=== PATIENT | male | born 1975 | race Caucasian/White ===

== ENCOUNTER 2018-03-15 11:48 | Inpatient (IN) | payer OTHER ==
[2018-03-15 11:58] VITALS: BMI 25.4
--- NOTE | 2018-03-15 16:02 | HP ---
COWS - Scale Resting Pulse: 0= [place] 80 or Below Sweatin= Chills/Flushing Restless Observation: 1= Difficult to Sit Still Pupil Size: 0= Normal to Room Light Bone or Joint Aches: 4=Acute Joint/Muscle Pain Runny Nose/ Eye Tearin= Runny Nose/Eyes GI Upset > 30mins: 2= Nausea/Diarrhea Tremor Observation: 2= Slight Tremor Visible Yawning Observation: 1= 1-2x During Session Anxiety or Irritability: 2=Irritable/Anxious Goose Flesh Skin: 0=Smooth Skin COWS Score: 15 CIWA Score - Admission Criteria OASAS Guidelines: Admission for Medically Managed Detox: Requires at least one of the followin. CIWA greater than 12 2. Seizures within the past 24 hours 3. Delirium tremens within the past 24 hours 4. Hallucinations within the past 24 hours 5. Acute intervention needed for co occurring medical disorder 6. Acute intervention needed for co occurring psychiatric disorder 7. Severe withdrawal that cannot be handled at a lower level of care (continued vomiting, continued diarrhea, abnormal vital signs) requiring intravenous medication and/or fluids 8. Admission ROS [facility] Chief Complaint: "I Need to Change My Life." Patient is here for Detox for Opiates (Heroin). Allergies/Adverse Reactions: Allergies Allergy/AdvReac Type Severity Reaction Status Date / Time Fish Containing Products Allergy Severe Verified 03/15/18 14:30 History of Present Illness: Patient is a 43 YO male here for Detox from Heroin (IV). This is Patient's first Detox admission at [facility]. Patient had a Detox admission at [facility] ([place], [place]) in 2018. Review of [facility] I-Stop Provider Registry Reveals No Prescription of Controlled substances for Patient in [facility] for last 12 months. Exam Limitations: No Limitations - Ebola screening Have you traveled outside of the country in the last 21 days: No Have you had contact with anyone from an Ebola affected area: No Have you been sick,other than usual withdrawal symptoms: No Do you have a fever: No - Review of Systems Constitutional: Chills, Diaphoresis, Fever, Loss of Appetite, Malaise, Night Sweats, Changes in sleep, Unintentional Wgt. Loss (Lost Approx. 30 lbs. over last 3-4 months.) EENT: reports: Nose Congestion, Sinus Pressure Respiratory: reports: No Symptoms reported Cardiac: reports: No Symptoms Reported GI: reports: Nausea, Poor Appetite, Indigestion, Abdominal cramping : reports: No Symptoms Reported Musculoskeletal: reports: Back Pain, Other (Bilateral Foot Pain.) Integumentary: reports: No Symptoms Reported Neuro: reports: Tremors Endocrine: reports: No Symptoms Reported Hematology: reports: No Symptoms Reported Psychiatric: reports: Judgement Intact, Mood/Affect Appropiate, Orientated x3, Anxious, Depressed (No Previous Treatment.) Other Systems: Reviewed and Negative Patient History - Patient Medical History Hx Anemia: No Hx Asthma: No Hx Chronic Obstructive Pulmonary Disease (COPD): No Hx Cancer: No Hx Cardiac Disorders: No Hx Congestive Heart Failure: No Hx Hypertension: No Hx Hypercholesterolemia: No Hx Pacemaker: No HX Cerebrovascular Accident: No Hx Seizures: No Hx Dementia: No Hx Diabetes: No Hx Gastrointestinal Disorders: No Hx Liver Disease: No Hx Genitourinary Disorders: No Hx Sexually Transmitted Disorders: No Hx Renal Disease (ESRD): No Hx Thyroid Disease: No Hx Human Immunodeficiency Virus (HIV): No (Last Tested: Approx. 6 Months Ago: NEGATIVE.) Hx Hepatitis C: No (Never Tested.) Hx Depression: Yes (No Previous Treatment.) Hx Suicide Attempt: Yes (Tried to cut wrist in 1990. PATIENT DENIES CURRENT HI / SI.) Hx Bipolar Disorder: No Hx Schizophrenia: No Other Medical History: DENIES. - Patient Surgical History Past Surgical History: Yes Hx Neurologic Surgery: No Hx Cataract Extraction: No Hx Cardiac Surgery: No Hx Lung Surgery: No Hx Breast Surgery: No Hx Breast Biopsy: No Hx Abdominal Surgery: No Hx Appendectomy: No Hx Cholecystectomy: No Hx Genitourinary Surgery: No Hx Orthopedic Surgery: Yes (Fx both ankles sx; Metal Rods Placed (2000-Left), ( 2009-Right).) Other Surgical History: DENIES. Anesthesia Reaction: No - PPD History Previous Implant?: Yes Documented Results: Negative w/o proof Implanted On Prior R Admission?: No PPD to be Administered?: Yes - Reproductive History Patient is a Female of Child Bearing Age (11 -55 yrs old): No (PATIENT IS MALE.) - Smoking Cessation Smoking history: Current every day smoker Have you smoked in the past 12 months: Yes Aproximately how many cigarettes per day: 40 Cigars Per Day: 0 Hx Chewing Tobacco Use: No Initiated information on smoking cessation: Yes 'Breaking Loose' booklet given: 03/15/18 (GIVEN ON UNIT.) - Substance & Tx. History Hx Alcohol Use: No Hx Substance Use: Yes Substance Use Type: Cocaine, Heroin Hx Substance Use Treatment: Yes (1 Previous Detox Admission at [facility]2018.) - Substances Abused Heroin Route: Injection Frequency: Daily Amount used: 20 bags Age of first use: 20 Date of Last Use: 03/15/18 Cocaine Route: Injection Frequency: 1-3 times last 30 days Amount used: $20 Age of first use: 22 Date of Last Use: 03/15/18 Family Disease History - Family Disease History Family History: Denies Admission Physical Exam S - Vital Signs Vital Signs: Vital Signs - 24 hr 03/15/18 11:55 Temperature 97.8 F Pulse Rate 71 Respiratory 18 Rate Blood Pressure 116/69 - Physical General Appearance: Yes: No Apparent Distress, Nourished, Appropriately Dressed , Tremorous, Irritable, Anxious HEENTM: Yes: Hearing grossly Normal, Normocephalic, Normal Voice, EDEL, Pharynx Normal Respiratory: Yes: Chest Non-Tender, Lungs Clear, No Respiratory Distress, No Accessory Muscle Use Neck: Yes: No masses,lesions,Nodules, Supple, Trachea in good position Breast: Yes: Breast Exam Deferred Cardiology: Yes: Regular Rhythm, Regular Rate, S1, S2 Abdominal: Yes: Normal Bowel Sounds, Non Tender, Flat, Soft Genitourinary: Yes: Within Normal Limits Back: Yes: Decreased Range of Motion Musculoskeletal: Yes: Gait Steady, Back pain, Joint Stiffness Extremities: Yes: Normal Capillary Refill, Normal Range of Motion, Tremors Neurological: Yes: Fully Oriented, Alert, Normal Mood/Affect, Normal Response Integumentary: Yes: Normal Color, Dry, Warm, Track Vicente (Noted on Bilateral Forearms, Bilateral Hands, Both Sides of Neck, and on Right Ankle (Near Medial Malleolus). No Swelling, Erythema, or signs of infection noted at any of the affected sites.), Other (Dry Skin on Soles of Bilateral Feet.) Lymphatic: Yes: Within Normal Limits - Diagnostic (1) Opioid dependence with withdrawal Current Visit: Yes Status: Acute (2) Cocaine dependence, uncomplicated Current Visit: Yes Status: Acute (3) Nicotine dependence Current Visit: Yes Status: Chronic Qualifiers: Nicotine product type: cigarettes Substance use status: uncomplicated Qualified Code(s): F17.210 - Nicotine dependence, cigarettes, uncomplicated (4) IVDU (intravenous drug user) Current Visit: Yes Status: Chronic Cleared for Admission [facility] - Detox or Rehab [facility] Level of Care: Medically Managed Detox Regimen/Protocol: Methadone [facility] Breath Alcohol Content Breath Alcohol Content: 0 Urine Drug Screen - Results Drug Screen Negative: No Urine Drug Screen Results: DONNA-Cocaine, OPI-Opiates, FEN-Fentanyl
[2018-03-15] MEDS ORDERED: P-EPHED 60MG/TRIPROLIDI 2.5MG TABLET PO PRN (16:23)
[2018-03-15] MEDS ORDERED: guaiFENesin/D-METHORPHAN HB 10 ML UNIT-DOSE CUPS PO PRN (16:23)
[2018-03-15] MEDS ORDERED: MAGNESIUM HYDROX 2400MG/30ML ORAL SUSPENSION 30 ML CUP PO PRN (16:23)
[2018-03-15] MEDS ORDERED: LOPERAMIDE HCL 2 MG CAPSULE PO PRN (16:23)
[2018-03-15] MEDS ORDERED: MAGNESIUM CITRATE 300 ML BOTTLE PO PRN (16:23)
[2018-03-15] MEDS ORDERED: ACETAMINOPHEN 325 MG TABLET (FP) PO PRN (16:23)
[2018-03-15] MEDS ORDERED: NICOTINE POLACRILEX 4 MG GUM BC PRN (16:23)
[2018-03-15] MEDS ORDERED: IBUPROFEN 400 MG TABLET (FP) PO PRN (16:23)
[2018-03-15] MEDS ORDERED: MAG HYDROX/AL HYDROX/SIMETH 30 ML UNIT-DOSE CUP PO PRN (16:23)
[2018-03-15] MEDS ORDERED: MENTHOL/PHENOL 1 EACH UD MM PRN (16:23)
[2018-03-15] MEDS ORDERED: METHADONE HCL 10 MG TABLET (FOR DETOX USE ONLY) PO ONE ×2 (16:45→23:00)
[2018-03-15] MEDS: diazePAM 5 MG TABLET PO PRN (17:23)
[2018-03-15] MEDS: BACITRACIN 0.9 GM PACKET TP SCH (22:06)
[2018-03-15] MEDS: NAPROXEN 375 MG TABLET (FP) PO SCH (22:06)
[2018-03-15] MEDS: THIAMINE HCL 100 MG TABLET (FP) PO SCH (22:07)
[2018-03-15] MEDS: CYCLOBENZAPRINE HCL 10 MG TABLET (FP) PO SCH (22:07)
[2018-03-15] MEDS: AMMONIUM LACTATE 12% LOTION 225 GM BOTTLE TP SCH (22:08)
[2018-03-16] MEDS: CYCLOBENZAPRINE HCL 10 MG TABLET (FP) PO SCH ×3 (05:10→22:11)
--- NOTE | 2018-03-16 09:12 | PN ---
BHS COWS - Scale Resting Pulse: 0= [place] 80 or Below Sweatin= Chills/Flushing Restless Observation: 1= Difficult to Sit Still Pupil Size: 1= Pupils >than Normal Bone or Joint Aches: 2= Severe Diffuse Aches Runny Nose/ Eye Tearin= Nasal Congestion GI Upset > 30mins: 2= Nausea/Diarrhea Tremor Observation of Outstretched Hands: 1= Tremor [place], Not Seen Yawning Observation: 1= 1-2x During Session Anxiety or Irritability: 1=Feels Anxious/Irritable Goose Flesh Skin: 0=Smooth Skin COWS Score: 11 S Progress Note (SOAP) Subjective: body aches joints pain restlessness tremor Objective: 03/16/18 09:13 Vital Signs Temperature 96.4 F L 03/16/18 09:04 Pulse Rate 61 03/16/18 09:04 Respiratory Rate 17 03/16/18 09:04 Blood Pressure 108/68 03/16/18 09:04 O2 Sat by Pulse Oximetry (%) lab pending Assessment: 03/16/18 09:14 withdrawal sx Plan: continue detox
[2018-03-16] MEDS ORDERED: METHADONE HCL 10 MG TABLET (FOR DETOX USE ONLY) PO ONE (10:00)
[2018-03-16] MEDS: NAPROXEN 375 MG TABLET (FP) PO SCH ×2 (10:07→22:11)
[2018-03-16] MEDS: PRENATAL VITAMINS W/ FOLIC ACID TABLET (FP) PO SCH (10:07)
[2018-03-16] MEDS: BACITRACIN 0.9 GM PACKET TP SCH ×2 (10:07→22:04)
[2018-03-16] MEDS: NICOTINE 21 MG/24 HOURS TOPICAL PATCH TD SCH (10:08)
[2018-03-16] MEDS: diazePAM 5 MG TABLET PO PRN ×3 (10:08→22:11)
[2018-03-16] MEDS: AMMONIUM LACTATE 12% LOTION 225 GM BOTTLE TP SCH ×2 (10:08→22:03)
[2018-03-16 10:51] LABS: HEMATOCRIT 37.7 % (35.4-49); HEMOGLOBIN 12.9 GM/dL (11.7-16.9); MCH 31.3 pg (25.7-33.7); MCHC 34.2 g/dl (32.0-35.9); MEAN CELL VOLUME 91.6 fl (80-96); MEAN PLT VOLUME 8.3 fl (7.5-11.1); PLATELET COUNT 256 K/MM3 (134-434); RBC 4.11 M/mm3 (4.00-5.60); WHITE BLOOD COUNT 6.3 K/mm3 (4.0-10.0)
[2018-03-16 11:04] LABS: ALBUMIN 3.7 g/dl (3.4-5.0); ALK PHOS 159 U/L (45-117); ANION GAP 9 MMOL/L (8-16); BILIRUBIN,TOTAL 0.7 mg/dL (0.2-1); BLOOD UREA NITROGEN 26 mg/dL (7-18); CALCIUM 9.1 mg/dL (8.5-10.1); CHLORIDE 103 mmol/L (98-107); CO2 26 mmol/L (21-32); CREATININE 1.1 mg/dL (0.55-1.3); GLUCOSE,RANDOM 103 mg/dL (74-106); POTASSIUM 4.4 mmol/L (3.5-5.1); SGOT/AST 29 U/L (15-37); SGPT/ALT 80 U/L (13-61); SODIUM 138 mmol/L (136-145); TOT PROT 7.5 g/dl (6.4-8.2)
[2018-03-16 12:20] LABS: SICKLE CELL SCREEN NEGATIVE (NEGATIVE)
[2018-03-16] MEDS: MELATONIN 5 MG TABLETS PO PRN (22:12)
[2018-03-16] MEDS: THIAMINE HCL 100 MG TABLET (FP) PO SCH (22:12)
[2018-03-17] MEDS: diazePAM 5 MG TABLET PO PRN ×4 (05:07→20:58)
[2018-03-17] MEDS: CYCLOBENZAPRINE HCL 10 MG TABLET (FP) PO SCH ×3 (05:07→22:18)
--- NOTE | 2018-03-17 09:24 | PN ---
BHS COWS - Scale Resting Pulse: 0= [place] 80 or Below Sweatin= Chills/Flushing Restless Observation: 0= Sits Still Pupil Size: 0= Normal to Room Light Bone or Joint Aches: 1= Mild Discomfort Runny Nose/ Eye Tearin= Nasal Congestion GI Upset > 30mins: 1= Stomach Cramp Tremor Observation of Outstretched Hands: 1= Tremor [place], Not Seen Yawning Observation: 2= >3x During Session Anxiety or Irritability: 1=Feels Anxious/Irritable Goose Flesh Skin: 0=Smooth Skin COWS Score: 8 BHS Progress Note (SOAP) Subjective: joints pain body aches trouble sleep at night Objective: 03/17/18 09:22 Vital Signs Temperature 96.7 F L 03/17/18 09:06 Pulse Rate 79 03/17/18 09:06 Respiratory Rate 18 03/17/18 09:06 Blood Pressure 95/54 L 03/17/18 09:06 O2 Sat by Pulse Oximetry (%) Laboratory Last Values WBC 6.3 K/mm3 (4.0-10.0) 03/16/18 05:45 RBC 4.11 M/mm3 (4.00-5.60) 03/16/18 05:45 Hgb 12.9 GM/dL (11.7-16.9) 03/16/18 05:45 Hct 37.7 % (35.4-49) 03/16/18 05:45 MCV 91.6 fl (80-96) 03/16/18 05:45 MCH 31.3 pg (25.7-33.7) 03/16/18 05:45 MCHC 34.2 g/dl (32.0-35.9) 03/16/18 05:45 RDW 14.0 % (11.9-15.9) 03/16/18 05:45 Plt Count 256 K/MM3 (134-434) 03/16/18 05:45 MPV 8.3 fl (7.5-11.1) 03/16/18 05:45 Sickle Cell Screen Negative (NEGATIVE) 03/16/18 05:45 Sodium 138 mmol/L (136-145) 03/16/18 05:45 Potassium 4.4 mmol/L (3.5-5.1) 03/16/18 05:45 Chloride 103 mmol/L (98-107) 03/16/18 05:45 Carbon Dioxide 26 mmol/L (21-32) 03/16/18 05:45 Anion Gap 9 MMOL/L (8-16) 03/16/18 05:45 BUN 26 mg/dL (7-18) H 03/16/18 05:45 Creatinine 1.1 mg/dL (0.55-1.3) 03/16/18 05:45 Creat Clearance w eGFR > 60 (>60) 03/16/18 05:45 Random Glucose 103 mg/dL (74-106) 03/16/18 05:45 Calcium 9.1 mg/dL (8.5-10.1) 03/16/18 05:45 Total Bilirubin 0.7 mg/dL (0.2-1) 03/16/18 05:45 AST 29 U/L (15-37) 03/16/18 05:45 ALT 80 U/L (13-61) H 03/16/18 05:45 Alkaline Phosphatase 159 U/L (45-117) H 03/16/18 05:45 Total Protein 7.5 g/dl (6.4-8.2) 03/16/18 05:45 Albumin 3.7 g/dl (3.4-5.0) 03/16/18 05:45 RPR Titer Nonreactive (NONREACTIVE) 03/16/18 05:45 Hep C Ab Diagnostic <0.1 s/co ratio (0.0-0.9) 03/16/18 05:45 HIV 1&2 Antibody Screen Negative 03/16/18 05:45 HIV P24 Antigen Negative 03/16/18 05:45 lab noted increase oral fluid Assessment: 03/17/18 09:23 withdrawal sx 03/17/18 09:24 fluid volume deficit Plan: continue detox increase oral fluid >3L daily
[2018-03-17] MEDS ORDERED: METHADONE HCL 5 MG TABLET (FOR DETOX USE ONLY) PO ONE (10:00)
[2018-03-17] MEDS: BACITRACIN 0.9 GM PACKET TP SCH ×2 (10:39→22:18)
[2018-03-17] MEDS: PRENATAL VITAMINS W/ FOLIC ACID TABLET (FP) PO SCH (10:39)
[2018-03-17] MEDS: NAPROXEN 375 MG TABLET (FP) PO SCH ×2 (10:39→22:18)
[2018-03-17] MEDS: AMMONIUM LACTATE 12% LOTION 225 GM BOTTLE TP SCH ×2 (10:41→22:19)
[2018-03-17] MEDS: NICOTINE 21 MG/24 HOURS TOPICAL PATCH TD SCH (10:41)
[2018-03-17] MEDS: THIAMINE HCL 100 MG TABLET (FP) PO SCH (22:19)
[2018-03-17] MEDS: MELATONIN 5 MG TABLETS PO PRN (22:19)
[2018-03-18] MEDS: CYCLOBENZAPRINE HCL 10 MG TABLET (FP) PO SCH ×2 (05:34→14:56)
[2018-03-18] MEDS: diazePAM 5 MG TABLET PO PRN ×3 (05:34→14:59)
--- NOTE | 2018-03-18 08:57 | PN ---
BHS Progress Note (SOAP) Subjective: body ache muscle cramping tremor reported feeling better today less tremor Objective: 03/18/18 08:55 Vital Signs Temperature 97.1 F L 03/18/18 06:29 Pulse Rate 64 03/18/18 06:29 Respiratory Rate 18 03/18/18 06:30 Blood Pressure 100/56 L 03/18/18 06:29 O2 Sat by Pulse Oximetry (%) Laboratory Last Values WBC 6.3 K/mm3 (4.0-10.0) 03/16/18 05:45 RBC 4.11 M/mm3 (4.00-5.60) 03/16/18 05:45 Hgb 12.9 GM/dL (11.7-16.9) 03/16/18 05:45 Hct 37.7 % (35.4-49) 03/16/18 05:45 MCV 91.6 fl (80-96) 03/16/18 05:45 MCH 31.3 pg (25.7-33.7) 03/16/18 05:45 MCHC 34.2 g/dl (32.0-35.9) 03/16/18 05:45 RDW 14.0 % (11.9-15.9) 03/16/18 05:45 Plt Count 256 K/MM3 (134-434) 03/16/18 05:45 MPV 8.3 fl (7.5-11.1) 03/16/18 05:45 Sickle Cell Screen Negative (NEGATIVE) 03/16/18 05:45 Sodium 138 mmol/L (136-145) 03/16/18 05:45 Potassium 4.4 mmol/L (3.5-5.1) 03/16/18 05:45 Chloride 103 mmol/L (98-107) 03/16/18 05:45 Carbon Dioxide 26 mmol/L (21-32) 03/16/18 05:45 Anion Gap 9 MMOL/L (8-16) 03/16/18 05:45 BUN 26 mg/dL (7-18) H 03/16/18 05:45 Creatinine 1.1 mg/dL (0.55-1.3) 03/16/18 05:45 Creat Clearance w eGFR > 60 (>60) 03/16/18 05:45 Random Glucose 103 mg/dL (74-106) 03/16/18 05:45 Calcium 9.1 mg/dL (8.5-10.1) 03/16/18 05:45 Total Bilirubin 0.7 mg/dL (0.2-1) 03/16/18 05:45 AST 29 U/L (15-37) 03/16/18 05:45 ALT 80 U/L (13-61) H 03/16/18 05:45 Alkaline Phosphatase 159 U/L (45-117) H 03/16/18 05:45 Total Protein 7.5 g/dl (6.4-8.2) 03/16/18 05:45 Albumin 3.7 g/dl (3.4-5.0) 03/16/18 05:45 RPR Titer Nonreactive (NONREACTIVE) 03/16/18 05:45 Hep C Ab Diagnostic <0.1 s/co ratio (0.0-0.9) 03/16/18 05:45 HIV 1&2 Antibody Screen Negative 03/16/18 05:45 HIV P24 Antigen Negative 03/16/18 05:45 lab noted Assessment: 03/18/18 08:56 withdrawal sx Plan: continue detox
[2018-03-18] MEDS ORDERED: METHADONE HCL 5 MG TABLET (FOR DETOX USE ONLY) PO ONE (10:00)
[2018-03-18] MEDS: NAPROXEN 375 MG TABLET (FP) PO SCH (10:41)
[2018-03-18] MEDS: PRENATAL VITAMINS W/ FOLIC ACID TABLET (FP) PO SCH (10:41)
[2018-03-18] MEDS: NICOTINE 21 MG/24 HOURS TOPICAL PATCH TD SCH (10:41)
[2018-03-18] MEDS: BACITRACIN 0.9 GM PACKET TP SCH (10:41)
[2018-03-18] MEDS: AMMONIUM LACTATE 12% LOTION 225 GM BOTTLE TP SCH (10:46)
[2018-03-18 13:26] VITALS: BP 112/78; PULSE 90; TEMP 96.8
--- NOTE | 2018-03-18 15:55 | DS ---
[facility] Detox Discharge Summary Admission Date: 03/15/18 Discharge Date: 03/18/18 - History Present History: Opioid Dependence Additional Comments: 43 years old male admitted on 03/15/18 for opiate withdrawal stabilization insists to leave the detox unit "I want to smoke cigarette" discuss craving coping skills patient preferred to leave the detox unit discuss negative consequences of opiate misuse encourage to brick picker narcan kit from the pharmacy Pertinent Past History: offer alternative therapeutic management for nicotine replacement offer supportive measurement - Physical Exam Results Vital Signs: Vital Signs Temperature 96.8 F L 03/18/18 13:24 Pulse Rate 90 03/18/18 13:24 Respiratory Rate 20 03/18/18 13:24 Blood Pressure 112/78 03/18/18 13:24 O2 Sat by Pulse Oximetry (%) Pertinent Admission Physical Exam Findings: opiate withdrawal sx Laboratory Last Values WBC 6.3 K/mm3 (4.0-10.0) 03/16/18 05:45 RBC 4.11 M/mm3 (4.00-5.60) 03/16/18 05:45 Hgb 12.9 GM/dL (11.7-16.9) 03/16/18 05:45 Hct 37.7 % (35.4-49) 03/16/18 05:45 MCV 91.6 fl (80-96) 03/16/18 05:45 MCH 31.3 pg (25.7-33.7) 03/16/18 05:45 MCHC 34.2 g/dl (32.0-35.9) 03/16/18 05:45 RDW 14.0 % (11.9-15.9) 03/16/18 05:45 Plt Count 256 K/MM3 (134-434) 03/16/18 05:45 MPV 8.3 fl (7.5-11.1) 03/16/18 05:45 Sickle Cell Screen Negative (NEGATIVE) 03/16/18 05:45 Sodium 138 mmol/L (136-145) 03/16/18 05:45 Potassium 4.4 mmol/L (3.5-5.1) 03/16/18 05:45 Chloride 103 mmol/L (98-107) 03/16/18 05:45 Carbon Dioxide 26 mmol/L (21-32) 03/16/18 05:45 Anion Gap 9 MMOL/L (8-16) 03/16/18 05:45 BUN 26 mg/dL (7-18) H 03/16/18 05:45 Creatinine 1.1 mg/dL (0.55-1.3) 03/16/18 05:45 Creat Clearance w eGFR > 60 (>60) 03/16/18 05:45 Random Glucose 103 mg/dL (74-106) 03/16/18 05:45 Calcium 9.1 mg/dL (8.5-10.1) 03/16/18 05:45 Total Bilirubin 0.7 mg/dL (0.2-1) 03/16/18 05:45 AST 29 U/L (15-37) 03/16/18 05:45 ALT 80 U/L (13-61) H 03/16/18 05:45 Alkaline Phosphatase 159 U/L (45-117) H 03/16/18 05:45 Total Protein 7.5 g/dl (6.4-8.2) 03/16/18 05:45 Albumin 3.7 g/dl (3.4-5.0) 03/16/18 05:45 RPR Titer Nonreactive (NONREACTIVE) 03/16/18 05:45 Hep C Ab Diagnostic <0.1 s/co ratio (0.0-0.9) 03/16/18 05:45 HIV 1&2 Antibody Screen Negative 03/16/18 05:45 HIV P24 Antigen Negative 03/16/18 05:45 lab noted - Treatment Hospital Course: Detox Protocol Followed, Responded well Patient has Accepted a Rehab Referral to: [facility] - Medication Discharge Medications: Ambulatory Orders Naloxone HCl [Narcan] 4 mg NS ASDIR PRN #1 spray 03/18/18 - Diagnosis (1) Opioid dependence with withdrawal Current Visit: Yes Status: Acute (2) Nicotine dependence Current Visit: Yes Status: Acute Qualifiers: Nicotine product type: cigarettes Substance use status: in withdrawal Qualified Code(s): F17.213 - Nicotine dependence, cigarettes, with withdrawal - AMA Did Patient Leave Against Medical Advice: Yes
[2018-03-19] MEDS ORDERED: METHADONE HCL 10 MG TABLET (FOR DETOX USE ONLY) PO ONE (10:00)
[2018-03-20] MEDS ORDERED: METHADONE HCL 5 MG TABLET (FOR DETOX USE ONLY) PO ONE (06:00)
== END 2018-03-18 15:58 | disposition left against medical advice (07) | DRG 770 ==
LOC: YASAS 11:48 → Y3N 15:27
PROVIDERS: ADMIT Neuromusculoskeletal Medicine & OMM; ATTEND Neuromusculoskeletal Medicine & OMM
PROC: HZ2ZZZZ Detoxification Services for Substance Abuse Treatment (ICD-10-PCS; principal; 2018-03-15)
DX: F11.23 Opioid dependence with withdrawal (principal); F14.20 Cocaine dependence, uncomplicated; F17.210 Nicotine dependence, cigarettes, uncomplicated; E86.9 Volume depletion, unspecified; Z91.5 Personal history of self-harm
CPT/HCPCS: 36415; 80053; 85027; 85660; 86593; 86803; 87389

== ENCOUNTER 2018-10-08 13:04 | Inpatient (IN) | payer OTHER ==
[2018-10-08 15:36] VITALS: BMI 27.1
--- NOTE | 2018-10-08 17:09 | HP ---
COWS - Scale Resting Pulse: 0= [place] 80 or Below Sweatin= Chills/Flushing Restless Observation: 0= Sits Still Pupil Size: 1= Pupils >than Normal Bone or Joint Aches: 2= Severe Diffuse Aches Runny Nose/ Eye Tearin= Runny Nose/Eyes GI Upset > 30mins: 3= Vomiting/Diarrhea Tremor Observation: 2= Slight Tremor Visible Yawning Observation: 1= 1-2x During Session Anxiety or Irritability: 4=Extreme Anxiety Goose Flesh Skin: 0=Smooth Skin COWS Score: 16 CIWA Score - Admission Criteria OASAS Guidelines: Admission for Medically Managed Detox: Requires at least one of the followin. CIWA greater than 12 2. Seizures within the past 24 hours 3. Delirium tremens within the past 24 hours 4. Hallucinations within the past 24 hours 5. Acute intervention needed for co occurring medical disorder 6. Acute intervention needed for co occurring psychiatric disorder 7. Severe withdrawal that cannot be handled at a lower level of care (continued vomiting, continued diarrhea, abnormal vital signs) requiring intravenous medication and/or fluids 8. Admission ROS [facility] Chief Complaint: Heroin withdrawal symptoms Allergies/Adverse Reactions: Allergies Allergy/AdvReac Type Severity Reaction Status Date / Time Fish Containing Products Allergy Severe Verified 10/08/18 15:28 No Known Drug Allergies Allergy Verified 10/08/18 17:41 History of Present Illness: 43 years old male with 23 years of heroin dependence i8s seeking admission to detox. Patient has been to multiple detox facilities and reports 5 years of sobriety. He has history of Herpes and depression. He denies suicide attempt and suicidal ideation at this time Exam Limitations: No Limitations - Ebola screening Have you traveled outside of the country in the last 21 days: No Have you had contact with anyone from an Ebola affected area: No Have you been sick,other than usual withdrawal symptoms: No Do you have a fever: No - Review of Systems Constitutional: Chills, Loss of Appetite, Night Sweats, Changes in sleep, Unintentional Wgt. Loss (reports 20 pounds weight loss) Respiratory: reports: No Symptoms reported Cardiac: reports: No Symptoms Reported GI: reports: Nausea, Poor Appetite, Poor Fluid Intake, Abdominal cramping : reports: No Symptoms Reported Musculoskeletal: reports: Back Pain, Joint Pain, Muscle Pain Integumentary: reports: Dryness, Flushing Neuro: reports: Tremors Endocrine: reports: No Symptoms Reported Hematology: reports: No Symptoms Reported Psychiatric: reports: Anxious, Depressed Other Systems: Reviewed and Negative Patient History - Patient Medical History Hx Anemia: No Hx Asthma: No Hx Chronic Obstructive Pulmonary Disease (COPD): No Hx Cancer: No Hx Cardiac Disorders: No Hx Congestive Heart Failure: No Hx Hypertension: No Hx Hypercholesterolemia: No Hx Pacemaker: No HX Cerebrovascular Accident: No Hx Seizures: No Hx Dementia: No Hx Diabetes: No Hx Gastrointestinal Disorders: No Hx Liver Disease: No Hx Genitourinary Disorders: No Hx Sexually Transmitted Disorders: Yes (Herpes -No outbreak for 3 years) Hx Renal Disease (ESRD): No Hx Thyroid Disease: No Hx Human Immunodeficiency Virus (HIV): No ( NEGATIVE 2018) Hx Hepatitis C: No (Never Tested.) Hx Depression: Yes (Not on medication) Hx Suicide Attempt: Yes (Tried to cut wrist in 1990. PATIENT DENIES CURRENT HI / SI.) Hx Bipolar Disorder: No Hx Schizophrenia: No - Patient Surgical History Past Surgical History: Yes Hx Neurologic Surgery: No Hx Cataract Extraction: No Hx Cardiac Surgery: No Hx Lung Surgery: No Hx Breast Surgery: No Hx Breast Biopsy: No Hx Abdominal Surgery: No Hx Appendectomy: No Hx Cholecystectomy: No Hx Genitourinary Surgery: No Hx Orthopedic Surgery: Yes (Fx both ankles sx; Metal Rods Placed (2000-Left), ( 2009-Right).) Other Surgical History: DENIES. Anesthesia Reaction: No - PPD History Previous Implant?: Yes Documented Results: Negative w/proof Date: 03/17/18 PPD to be Administered?: No - Reproductive History Patient is a Female of Child Bearing Age (11 -55 yrs old): No (male) - Smoking Cessation Smoking history: Current every day smoker Have you smoked in the past 12 months: Yes Aproximately how many cigarettes per day: 40 Cigars Per Day: 0 Hx Chewing Tobacco Use: No Initiated information on smoking cessation: Yes 'Breaking Loose' booklet given: 10/08/18 - Substance & Tx. History Hx Alcohol Use: No Hx Substance Use: Yes Substance Use Type: Cocaine, Heroin, Opiates Hx Substance Use Treatment: Yes ([facility]) - Substances abused Heroin Substance route: Injection Frequency: Daily Amount used: 2 bundles Age of first use: 20 Date of last use: 10/08/18 Cocaine Substance route: Injection Frequency: Daily Amount used: 3 grams Age of first use: 18 Date of last use: 10/07/18 Family Disease History - Family Disease History Family History: Denies Admission Physical Exam [facility] - Vital Signs Vital Signs: Vital Signs - 24 hr 10/08/18 15:28 Temperature 98.0 F Pulse Rate 74 Respiratory 18 Rate Blood Pressure 126/74 - Physical General Appearance: Yes: Moderate Distress, Tremorous, Sweating, Anxious HEENTM: Yes: Within Normal Limits Respiratory: Yes: Lungs Clear, Normal Breath Sounds, No Respiratory Distress Neck: Yes: Supple Breast: Yes: Breast Exam Deferred Cardiology: Yes: Regular Rhythm, Regular Rate Abdominal: Yes: Normal Bowel Sounds Genitourinary: Yes: Within Normal Limits Back: Yes: Normal Inspection Musculoskeletal: Yes: Back pain, Muscle Pain Extremities: Yes: Tremors Neurological: Yes: Normal Mood/Affect Integumentary: Yes: Warm Lymphatic: Yes: Within Normal Limits Cleared for Admission [facility] - Detox or Rehab [facility] Level of Care: Medically Managed Detox Regimen/Protocol: Methadone Inpatient Rehab Admission - Rehab Decision to Admit Inpatient rehab admission?: No
[2018-10-08] MEDS ORDERED: ACETAMINOPHEN 325 MG TABLET (FP) PO PRN ×2 (17:27)
[2018-10-08] MEDS ORDERED: MAGNESIUM HYDROX 2400MG/30ML ORAL SUSPENSION 30 ML CUP PO PRN (17:27)
[2018-10-08] MEDS ORDERED: MAGNESIUM CITRATE 300 ML BOTTLE PO PRN (17:27)
[2018-10-08] MEDS ORDERED: MENTHOL/PHENOL 1 EACH UD MM PRN (17:27)
[2018-10-08] MEDS ORDERED: MAG HYDROX/AL HYDROX/SIMETH 30 ML UNIT-DOSE CUP PO PRN (17:27)
[2018-10-08] MEDS ORDERED: cloNIDine HCL 0.1 MG TABLET PO PRN (17:27)
[2018-10-08] MEDS ORDERED: BISMUTH SUBSALICYLATE 524 MG/30 ML UD PO PRN (17:27)
[2018-10-08] MEDS ORDERED: IBUPROFEN 400 MG TABLET (FP) PO PRN (17:27)
[2018-10-08] MEDS ORDERED: NICOTINE POLACRILEX 2 MG GUM BUC PRN (17:27)
[2018-10-08] MEDS ORDERED: METHADONE HCL 10 MG TABLET (FOR DETOX USE ONLY) PO ONE (18:00)
[2018-10-08] MEDS: hydrOXYzine PAMOATE 25 MG CAPSULE (FP) PO PRN (18:22)
[2018-10-08] MEDS: THIAMINE HCL 100 MG TABLET (FP) PO SCH (22:19)
[2018-10-08] MEDS: MELATONIN 5 MG TABLETS PO PRN (22:20)
[2018-10-09] MEDS ORDERED: METHADONE HCL 5 MG TABLET (FOR DETOX USE ONLY) ONE (09:34)
[2018-10-09] MEDS ORDERED: METHADONE HCL 10 MG TABLET (FOR DETOX USE ONLY) ONE (09:34)
[2018-10-09] MEDS ORDERED: METHADONE (DETOX) 20 MG, METHADONE (DETOX) 5 MG PO ONE (10:00)
[2018-10-09] MEDS: PRENATAL VITAMINS W/ FOLIC ACID TABLET (FP) PO SCH (10:04)
[2018-10-09] MEDS: METHOCARBAMOL 500 MG TABLET PO PRN (10:04)
[2018-10-09] MEDS: NICOTINE 21 MG/24 HOURS TOPICAL PATCH TD SCH (10:06)
--- NOTE | 2018-10-09 10:41 | CONSULT ---
[facility] Psychiatric Consult - Data Date of interview: 10/09/18 Admission source: [facility] Identifying data: Readmission to [facility] for this 43 y/o male self- referred for detoxification (heroin, cocaine). Interviewed at [address] [place] [address]. Patient is single, no dependents, domiciled, unemployed and deprived of income. Substance Abuse History: Confirmed by patient. Details in current [facility] report as follows : Smoking history: Current every day smoker. Have you smoked in the past 12 months: Yes. Aproximately how many cigarettes per day: 40. Cigars Per Day: 0. Hx Chewing Tobacco Use: No. Initiated information on smoking cessation : Yes. 'Breaking Loose' booklet given: 10/08/18. - Substance & Tx. History. Hx Alcohol Use: No. Hx Substance Use: Yes. Substance Use Type: Cocaine, Heroin , Opiates. Hx Substance Use Treatment: Yes ([facility] - Substances abused. Heroin. Substance route: Injection. Frequency: Daily. Amount used : 2 bundles. Age of first use: 20. Date of last use: 10/08/18. Cocaine. Substance route: Injection. Frequency: Daily. Amount used: 3 grams. Age of first use: 18. Date of last use: 10/07/18 Medical History: Medical profile is remarkable for herpes genitalis and history of orthosurgery for fracture of both ankles in 1990 ([address] in [address]). Psychiatric History: Patient denies history of psychiatric hospitalizations or contact with psychiatric OPD care providers. Mr Walter does admit, however, to a suicide attempt via wrist-cutting at age 17 (was evaluated by a psychiatrist, reportedly diagnosed at the time with MDD but patient did not folllow-up with psychiatric care). Noted self-report of intellectual limitations (special education). Physical/Sexual Abuse/Trauma History: Patient denies history of abuse. Additional Comment: No toxicology available for review. Mental Status Exam - Mental Status Exam Alert and Oriented to: Time, Place, Person Cognitive Function: Grossly Intact Patient Appearance: Unkempt, Disheveled Mood: Nervous, Withdrawn Affect: Mood Congruent, Constricted Patient Behavior: Fatigued, Cooperative Speech Pattern: Clear Voice Loudness: Normal Thought Process: Intact, Goal Oriented Thought Disorder: Not Present Hallucinations: Denies Suicidal Ideation: Denies Homicidal Ideation: Denies Insight/Judgement: Poor Sleep: Poorly, Difficulty falling asleep Appetite: Good Muscle strength/Tone: Normal Gait/Station: Normal Psychiatric Findings - Problem List ([place] 1, 2,3) (1) Opioid dependence with withdrawal Current Visit: Yes Status: Acute (2) Cocaine dependence, uncomplicated Current Visit: Yes Status: Chronic (3) Nicotine dependence Current Visit: Yes Status: Chronic Qualifiers: Nicotine product type: cigarettes Substance use status: in withdrawal Qualified Code(s): F17.213 - Nicotine dependence, cigarettes, with withdrawal (4) Insomnia Current Visit: Yes Status: Chronic (5) Substance induced mood disorder Current Visit: Yes Status: Suspected - Initial Treatment Plan Initial Treatment Plan: Psychoeducation. Sleep hygiene. Detoxification. Support. NA meetings. Counseling for relapse prevention. Groups. Rehabilitation recommended. Seroquel 50 mg po hs. Ordered at patient's request to address insomnia. Side effects/benefits and indications are discussed with the patient. Mr Walter gave verbal consent to MD. Elizondo.
[2018-10-09 11:05] LABS: HEMATOCRIT 36.2 % (35.4-49); HEMOGLOBIN 12.2 GM/dL (11.7-16.9); MCH 31.3 pg (25.7-33.7); MCHC 33.8 g/dl (32.0-35.9); MEAN CELL VOLUME 92.6 fl (80-96); MEAN PLT VOLUME 7.5 fl (7.5-11.1); RBC 3.91 M/mm3 (4.00-5.60); WHITE BLOOD COUNT 3.7 K/mm3 (4.0-10.0)
[2018-10-09 11:13] LABS: ALBUMIN 2.9 g/dl (3.4-5.0); BILIRUBIN,TOTAL 0.4 mg/dL (0.2-1); BLOOD UREA NITROGEN 11.5 mg/dL (7-18); CREATININE 0.7 mg/dL (0.55-1.3); POTASSIUM 4.2 mmol/L (3.5-5.1); TOT PROT 6.6 g/dl (6.4-8.2)
[2018-10-09 11:27] LABS: PLATELET COUNT 231 K/MM3 (134-434)
--- NOTE | 2018-10-09 15:40 | PN ---
[facility] COWS - Scale Resting Pulse: 0= [place] 80 or Below Sweatin= No chills or Flushing Restless Observation: 1= Difficult to Sit Still Pupil Size: 0= Normal to Room Light Bone or Joint Aches: 2= Severe Diffuse Aches Runny Nose/ Eye Tearin= None GI Upset > 30mins: 1= Stomach Cramp Tremor Observation of Outstretched Hands: 0= None Yawning Observation: 1= 1-2x During Session Anxiety or Irritability: 2=Irritable/Anxious Goose Flesh Skin: 3=Piloerection COWS Score: 10 BHS Progress Note (SOAP) Subjective: Anxious, Fatigue, Interrupted Sleep, Body Aches, Stomach Cramping. Objective: PATIENT A & O X 3, OBSERVED AMBULATING ON UNIT UNASSISTED. IN NO ACUTE DISTRESS. 10/09/18 15:38 Vital Signs Temperature 97.5 F L 10/09/18 13:08 Pulse Rate 59 L 10/09/18 13:08 Respiratory Rate 18 10/09/18 13:08 Blood Pressure 94/58 L 10/09/18 13:08 O2 Sat by Pulse Oximetry (%) Laboratory Tests 10/09/18 10/09/18 10/09/18 08:00 08:00 08:00 WBC 3.7 L RBC 3.91 L Hgb 12.2 Hct 36.2 MCV 92.6 MCH 31.3 MCHC 33.8 RDW 14.0 Plt Count 231 MPV 7.5 Sodium 142 Potassium 4.2 Chloride 107 Carbon Dioxide 29 Anion Gap 6 L BUN 11.5 Creatinine 0.7 Est GFR (CKD-EPI)AfAm 135.86 Est GFR (CKD-EPI)NonAf 117.22 Random Glucose 97 Calcium 9.0 Total Bilirubin 0.4 AST 59 H ALT 115 H Alkaline Phosphatase 205 H Total Protein 6.6 Albumin 2.9 L RPR Titer Nonreactive LABS NOTED. Assessment: 10/09/18 15:39 WITHDRAWAL SYMPTOMS. LEUKOPENIA. ELEVATED LIVER ENZYMES VALUES. 10/09/18 15:39 Plan: CONTINUE DETOX. INCREASE DAILY PO WATER INTAKE. HFP ORDERED FOR TOMORROW AM FOR ELEVATED LIVER ENZYME VALUES NOTED ON DETOX ADMISSION LABORATORY ASSESSMENT.
[2018-10-09] MEDS: THIAMINE HCL 100 MG TABLET (FP) PO SCH (22:02)
[2018-10-09] MEDS: MELATONIN 5 MG TABLETS PO PRN (22:02)
[2018-10-09] MEDS: hydrOXYzine PAMOATE 25 MG CAPSULE (FP) PO PRN (22:02)
[2018-10-10 09:40] LABS: ALBUMIN 3.1 g/dl (3.4-5.0); BILIRUBIN,DIRECT 0.1 mg/dL (0.0-0.2); BILIRUBIN,TOTAL 0.4 mg/dL (0.2-1)
[2018-10-10] MEDS ORDERED: METHADONE HCL 10 MG TABLET (FOR DETOX USE ONLY) PO ONE (10:00)
[2018-10-10] MEDS: NICOTINE 21 MG/24 HOURS TOPICAL PATCH TD SCH (10:08)
[2018-10-10] MEDS: PRENATAL VITAMINS W/ FOLIC ACID TABLET (FP) PO SCH (10:08)
--- NOTE | 2018-10-10 10:12 | PN ---
S Progress Note Note: Told by nursing staff that patient is requesting medication for insomnia. He was seen yesterday by Dr Choi who recommended Seroquel 50 mg/hs. Will order Seroquel 50 mg/hs for patient
--- NOTE | 2018-10-10 12:58 | PN ---
BHS COWS - Scale Resting Pulse: 0= [place] 80 or Below Sweatin= Chills/Flushing Restless Observation: 0= Sits Still Pupil Size: 1= Pupils >than Normal Bone or Joint Aches: 1= Mild Discomfort Runny Nose/ Eye Tearin= Nasal Congestion GI Upset > 30mins: 1= Stomach Cramp Tremor Observation of Outstretched Hands: 1= Tremor [place], Not Seen Yawning Observation: 1= 1-2x During Session Anxiety or Irritability: 1=Feels Anxious/Irritable Goose Flesh Skin: 0=Smooth Skin COWS Score: 8 BHS Progress Note (SOAP) Subjective: 43 years old male admitted on 10/08/18 for acute opiate withdrawal sx management doing welll with methadone detox regimen trouble sleep at night seroquel 50 mg po hs reassurance given that the patient will receive seroquel 50 mg po before bed time Objective: 10/10/18 13:01 Vital Signs Temperature 98 F 10/10/18 09:17 Pulse Rate 66 10/10/18 09:17 Respiratory Rate 20 10/10/18 09:17 Blood Pressure 98/62 10/10/18 09:17 O2 Sat by Pulse Oximetry (%) Laboratory Last Values WBC 3.7 K/mm3 (4.0-10.0) L 10/09/18 08:00 RBC 3.91 M/mm3 (4.00-5.60) L 10/09/18 08:00 Hgb 12.2 GM/dL (11.7-16.9) 10/09/18 08:00 Hct 36.2 % (35.4-49) 10/09/18 08:00 MCV 92.6 fl (80-96) 10/09/18 08:00 MCH 31.3 pg (25.7-33.7) 10/09/18 08:00 MCHC 33.8 g/dl (32.0-35.9) 10/09/18 08:00 RDW 14.0 % (11.9-15.9) 10/09/18 08:00 Plt Count 231 K/MM3 (134-434) 10/09/18 08:00 MPV 7.5 fl (7.5-11.1) 10/09/18 08:00 Sodium 142 mmol/L (136-145) 10/09/18 08:00 Potassium 4.2 mmol/L (3.5-5.1) 10/09/18 08:00 Chloride 107 mmol/L (98-107) 10/09/18 08:00 Carbon Dioxide 29 mmol/L (21-32) 10/09/18 08:00 Anion Gap 6 MMOL/L (8-16) L 10/09/18 08:00 BUN 11.5 mg/dL (7-18) 10/09/18 08:00 Creatinine 0.7 mg/dL (0.55-1.3) 10/09/18 08:00 Est GFR (CKD-EPI)AfAm 135.86 10/09/18 08:00 Est GFR (CKD-EPI)NonAf 117.22 10/09/18 08:00 Random Glucose 97 mg/dL (74-106) 10/09/18 08:00 Calcium 9.0 mg/dL (8.5-10.1) 10/09/18 08:00 Total Bilirubin 0.4 mg/dL (0.2-1) 10/10/18 07:45 Direct Bilirubin 0.1 mg/dL (0.0-0.2) 10/10/18 07:45 AST 43 U/L (15-37) H 10/10/18 07:45 ALT 105 U/L (13-61) H 10/10/18 07:45 Alkaline Phosphatase 187 U/L (45-117) H 10/10/18 07:45 Total Protein 7.0 g/dl (6.4-8.2) 10/10/18 07:45 Albumin 3.1 g/dl (3.4-5.0) L 10/10/18 07:45 RPR Titer Nonreactive (NONREACTIVE) 10/09/18 08:00 lab noted Assessment: 10/10/18 13:01 opiate withdrawal sx discuss medication assited treatment progrm Plan: continue methadone detox regimen seroquel 50 mg po hs
[2018-10-10] MEDS ORDERED: QUEtiapine FUMARATE 50 MG TABLET PO SCH (22:00)
[2018-10-10] MEDS: MELATONIN 5 MG TABLETS PO PRN (22:05)
[2018-10-10] MEDS: THIAMINE HCL 100 MG TABLET (FP) PO SCH (22:05)
[2018-10-11 09:27] VITALS: BP 100/54; PULSE 60; TEMP 97.6
[2018-10-11] MEDS ORDERED: METHADONE HCL 10 MG TABLET (FOR DETOX USE ONLY) ONE (09:53)
[2018-10-11] MEDS ORDERED: METHADONE HCL 5 MG TABLET (FOR DETOX USE ONLY) ONE (09:54)
[2018-10-11] MEDS ORDERED: METHADONE (DETOX) 10 MG, METHADONE (DETOX) 5 MG PO ONE (10:00)
[2018-10-11] MEDS: NICOTINE 21 MG/24 HOURS TOPICAL PATCH TD SCH (10:07)
[2018-10-11] MEDS: hydrOXYzine PAMOATE 25 MG CAPSULE (FP) PO PRN (10:07)
[2018-10-11] MEDS: METHOCARBAMOL 500 MG TABLET PO PRN (10:07)
[2018-10-11] MEDS: PRENATAL VITAMINS W/ FOLIC ACID TABLET (FP) PO SCH (10:07)
--- NOTE | 2018-10-11 13:02 | EKG ---
Test Reason : Blood Pressure : / mmHG Vent. Rate : 054 BPM Atrial Rate : 054 BPM P-R Int : 218 ms QRS Dur : 094 ms QT Int : 422 ms P-R-T Axes : -17 052 025 degrees QTc Int : 400 ms SINUS BRADYCARDIA WITH SINUS ARRHYTHMIA WITH 1ST DEGREE A-V BLOCK OTHERWISE NORMAL ECG NO PREVIOUS ECGS AVAILABLE Confirmed by TROY PECK MD ([id number]) on 10/11/2018 1:02:13 PM Referred By: SERGIO Confirmed By:TROY PECK MD
--- NOTE | 2018-10-11 14:02 | DS ---
[facility] Detox Discharge Summary Admission Date: 10/08/18 Discharge Date: 10/11/18 - History Present History: Cocaine Dependence, Opioid Dependence Pertinent Past History: Pt was admitted on 10/08. Was on heroin detox protocol. Pt stated this morning that he wanted to leave- no reason given. PRN meds given, today's dose of detox methadone given. Pt not on home meds. Pt states that he does not need any meds. f/u PCP. - Physical Exam Results Vital Signs: Vital Signs Temperature 97.6 F 10/11/18 09:26 Pulse Rate 60 10/11/18 09:26 Respiratory Rate 16 10/11/18 09:26 Blood Pressure 100/54 L 10/11/18 09:26 O2 Sat by Pulse Oximetry (%) Pertinent Admission Physical Exam Findings: alert and oriented ambulatory - Medication Discharge Medications: Ambulatory Orders NK [No Known Home Medication] 10/08/18 - Diagnosis (1) Opioid dependence with withdrawal Status: Acute (2) Nicotine dependence Status: Chronic Qualifiers: Nicotine product type: cigarettes Substance use status: in withdrawal Qualified Code(s): F17.213 - Nicotine dependence, cigarettes, with withdrawal - AMA Did Patient Leave Against Medical Advice: Yes
[2018-10-12] MEDS ORDERED: METHADONE HCL 10 MG TABLET (FOR DETOX USE ONLY) PO ONE (10:00)
[2018-10-13] MEDS ORDERED: METHADONE HCL 5 MG TABLET (FOR DETOX USE ONLY) PO ONE (06:00)
== END 2018-10-11 11:11 | disposition left against medical advice (07) | DRG 770 ==
LOC: YASAS 13:04 → Y3N 17:46
PROVIDERS: ADMIT Surgery; ATTEND Surgery
PROC: HZ2ZZZZ Detoxification Services for Substance Abuse Treatment (ICD-10-PCS; principal; 2018-10-08)
DX: F11.23 Opioid dependence with withdrawal (principal); F14.20 Cocaine dependence, uncomplicated; F17.213 Nicotine dependence, cigarettes, with withdrawal; F19.24 Other psychoactive substance dependence with psychoactive substance-induced mood disorder; G47.00 Insomnia, unspecified; D72.819 Decreased white blood cell count, unspecified; R94.5 Abnormal results of liver function studies; Z86.19 Personal history of other infectious and parasitic diseases; Z91.5 Personal history of self-harm
CPT/HCPCS: 36415; 80053; 80076; 85027; 86593; 93005; 93010; J0735

== ENCOUNTER 2020-01-20 11:10 | Inpatient (IN) | payer OTHER ==
[2020-01-20 12:41] VITALS: BMI 28.6
[2020-01-20] MEDS ORDERED: chlordiazePOXIDE HCL 25 MG CAPSULE PO PRN (13:11)
[2020-01-20] MEDS ORDERED: IBUPROFEN 400 MG TABLET (FP) PO PRN (13:11)
[2020-01-20] MEDS ORDERED: NICOTINE POLACRILEX 2 MG GUM BUC PRN (13:11)
[2020-01-20] MEDS ORDERED: MAGNESIUM HYDROX 2400MG/30ML ORAL SUSPENSION 30 ML CUP PO PRN (13:11)
[2020-01-20] MEDS ORDERED: ACETAMINOPHEN 325 MG TABLET (FP) PO PRN ×2 (13:11)
[2020-01-20] MEDS ORDERED: ONDANSETRON *ODT* 4 MG TABLET SL PRN (13:11)
[2020-01-20] MEDS ORDERED: BISMUTH SUBSALICYLATE 524 MG/30 ML UD PO PRN (13:11)
[2020-01-20] MEDS ORDERED: MAG HYDROX/AL HYDROX/SIMETH 30 ML UNIT-DOSE CUP PO PRN (13:11)
[2020-01-20] MEDS ORDERED: cloNIDine HCL 0.1 MG TABLET PO PRN (13:11)
[2020-01-20] MEDS ORDERED: MAGNESIUM CITRATE 300 ML BOTTLE PO PRN (13:11)
[2020-01-20] MEDS ORDERED: MENTHOL/PHENOL 1 EACH UD MM PRN (13:11)
[2020-01-20] MEDS ORDERED: METHADONE HCL 10 MG TABLET (FOR DETOX USE ONLY) PO ONE (14:00)
[2020-01-20] MEDS ORDERED: hydrOXYzine PAMOATE 25 MG CAPSULE (FP) PO SCH (14:00)
[2020-01-20] MEDS: PRENATAL VITAMINS W/ FOLIC ACID TABLET (FP) PO SCH (14:43)
[2020-01-20] MEDS: NICOTINE 21 MG/24 HOURS TOPICAL PATCH TD SCH (14:48)
[2020-01-20 17:16] LABS: HEMATOCRIT 35.9 % (35.4-49); HEMOGLOBIN 11.8 GM/dL (11.7-16.9); MCH 30.6 pg (25.7-33.7); MCHC 32.9 g/dl (32.0-35.9); MEAN CELL VOLUME 93.1 fl (80-96); MEAN PLT VOLUME 7.9 fl (7.5-11.1); PLATELET COUNT 259 K/MM3 (134-434); RBC 3.86 M/mm3 (4.00-5.60); RDW 14.5 % (11.9-15.9); WHITE BLOOD COUNT 13.7 K/mm3 (4.0-10.0)
[2020-01-20 17:50] LABS: POTASSIUM 4.1 mmol/L (3.5-5.1)
[2020-01-20 17:54] LABS: ALBUMIN 3.7 g/dl (3.4-5.0); CALCIUM 9.4 mg/dL (8.5-10.1)
[2020-01-20 17:55] LABS: BLOOD UREA NITROGEN 16.6 mg/dL (7-18)
[2020-01-20 17:57] LABS: CREATININE 0.9 mg/dL (0.55-1.3)
[2020-01-20 17:59] LABS: TOT PROT 8.2 g/dl (6.4-8.2)
[2020-01-20] MEDS: chlordiazePOXIDE HCL 25 MG CAPSULE PO SCH ×2 (17:59→22:15)
[2020-01-20] MEDS: MELATONIN 5 MG TABLETS PO SCH (22:13)
[2020-01-20] MEDS: THIAMINE HCL 100 MG TABLET (FP) PO SCH (22:14)
[2020-01-21] MEDS: hydrOXYzine PAMOATE 25 MG CAPSULE (FP) PO PRN (03:47)
[2020-01-21] MEDS: chlordiazePOXIDE HCL 25 MG CAPSULE PO SCH ×4 (06:08→22:27)
[2020-01-21] MEDS ORDERED: METHADONE HCL 5 MG TABLET (FOR DETOX USE ONLY) ONE (09:10)
[2020-01-21] MEDS ORDERED: METHADONE HCL 10 MG TABLET (FOR DETOX USE ONLY) ONE (09:11)
[2020-01-21] MEDS ORDERED: METHADONE (DETOX) 20 MG, METHADONE (DETOX) 5 MG PO ONE (10:00)
[2020-01-21] MEDS: PRENATAL VITAMINS W/ FOLIC ACID TABLET (FP) PO SCH (10:31)
[2020-01-21] MEDS: NICOTINE 21 MG/24 HOURS TOPICAL PATCH TD SCH (10:31)
[2020-01-21 12:12] LABS: HIV INTERPRETATION NEGATIVE (NEGATIVE)
[2020-01-21] MEDS: THIAMINE HCL 100 MG TABLET (FP) PO SCH (22:27)
[2020-01-21] MEDS: MELATONIN 5 MG TABLETS PO SCH (23:17)
[2020-01-22] MEDS: chlordiazePOXIDE HCL 25 MG CAPSULE PO SCH ×4 (05:36→22:42)
[2020-01-22] MEDS ORDERED: METHADONE HCL 10 MG TABLET (FOR DETOX USE ONLY) PO ONE (10:00)
[2020-01-22] MEDS: NICOTINE 21 MG/24 HOURS TOPICAL PATCH TD SCH (10:54)
[2020-01-22] MEDS: PRENATAL VITAMINS W/ FOLIC ACID TABLET (FP) PO SCH (10:54)
[2020-01-22] MEDS: THIAMINE HCL 100 MG TABLET (FP) PO SCH (22:42)
[2020-01-22] MEDS: MELATONIN 5 MG TABLETS PO SCH (22:42)
[2020-01-23] MEDS ORDERED: chlordiazePOXIDE HCL 10 MG CAPSULE PO PRN
[2020-01-23] MEDS: chlordiazePOXIDE HCL 10 MG CAPSULE PO SCH ×4 (07:00→22:43)
[2020-01-23] MEDS ORDERED: METHADONE HCL 5 MG TABLET (FOR DETOX USE ONLY) ONE (09:16)
[2020-01-23] MEDS ORDERED: METHADONE HCL 10 MG TABLET (FOR DETOX USE ONLY) ONE (09:17)
[2020-01-23] MEDS ORDERED: METHADONE (DETOX) 10 MG, METHADONE (DETOX) 5 MG PO ONE (10:00)
[2020-01-23] MEDS: NICOTINE 21 MG/24 HOURS TOPICAL PATCH TD SCH (10:26)
[2020-01-23] MEDS: PRENATAL VITAMINS W/ FOLIC ACID TABLET (FP) PO SCH (10:26)
[2020-01-23] MEDS: MELATONIN 5 MG TABLETS PO SCH (22:43)
[2020-01-23] MEDS: THIAMINE HCL 100 MG TABLET (FP) PO SCH (22:43)
[2020-01-24] MEDS: chlordiazePOXIDE HCL 10 MG CAPSULE PO SCH ×2 (06:15→17:29)
[2020-01-24] MEDS: METHOCARBAMOL 500 MG TABLET PO PRN ×2 (06:16→21:23)
[2020-01-24] MEDS ORDERED: METHADONE HCL 10 MG TABLET (FOR DETOX USE ONLY) PO ONE (10:00)
[2020-01-24] MEDS: NICOTINE 21 MG/24 HOURS TOPICAL PATCH TD SCH (10:19)
[2020-01-24] MEDS: PRENATAL VITAMINS W/ FOLIC ACID TABLET (FP) PO SCH (10:19)
[2020-01-24 14:45] LABS: URINE APPEARANCE CLEAR; URINE BILIRUBIN NEGATIVE (NEGATIVE); URINE COLOR YELLOW; URINE GLUCOSE (UA) NEGATIVE (NEGATIVE); URINE KETONE NEGATIVE (NEGATIVE); URINE LEUK ESTERASE NEGATIVE (NEGATIVE); URINE NITRITE NEGATIVE (NEGATIVE); URINE PROTEIN NEGATIVE (NEGATIVE); URINE UROBILINOGEN 0.2 mg/dL (0.2-1.0)
[2020-01-24] MEDS: hydrOXYzine PAMOATE 25 MG CAPSULE (FP) PO PRN (21:22)
[2020-01-24] MEDS: THIAMINE HCL 100 MG TABLET (FP) PO SCH (21:23)
[2020-01-24] MEDS: MELATONIN 5 MG TABLETS PO SCH (21:23)
[2020-01-25] MEDS ORDERED: chlordiazePOXIDE HCL 10 MG CAPSULE PO ONE (05:00)
[2020-01-25] MEDS ORDERED: METHADONE HCL 5 MG TABLET (FOR DETOX USE ONLY) PO ONE (06:00)
[2020-01-25 09:39] VITALS: BP 105/61; PULSE 70; TEMP 97.3
[2020-01-25] MEDS: PRENATAL VITAMINS W/ FOLIC ACID TABLET (FP) PO SCH (10:07)
[2020-01-25] MEDS: NICOTINE 21 MG/24 HOURS TOPICAL PATCH TD SCH (10:08)
== END 2020-01-25 11:40 | disposition other institution (70) | DRG 773 ==
LOC: YASAS 11:10 → Y6N 13:28
PROVIDERS: ADMIT Allergy & Immunology; ATTEND Allergy & Immunology
PROC: HZ2ZZZZ Detoxification Services for Substance Abuse Treatment (ICD-10-PCS; principal; 2020-01-20)
DX: F11.23 Opioid dependence with withdrawal (principal); F10.230 Alcohol dependence with withdrawal, uncomplicated; F14.20 Cocaine dependence, uncomplicated; F17.210 Nicotine dependence, cigarettes, uncomplicated; F19.24 Other psychoactive substance dependence with psychoactive substance-induced mood disorder; R74.01 Elevation of levels of liver transaminase levels; R00.0 Tachycardia, unspecified; D72.819 Decreased white blood cell count, unspecified; G47.00 Insomnia, unspecified; R94.5 Abnormal results of liver function studies; Z86.19 Personal history of other infectious and parasitic diseases; Z91.013 Allergy to seafood; Z56.0 Unemployment, unspecified; Z59.0 Homelessness
CPT/HCPCS: 36415; 80053; 81003; 85027; 86780; 87389; C9803; U0003

== ENCOUNTER 2020-01-25 11:49 | Inpatient (IN) | payer OTHER ==
[2020-01-25] MEDS ORDERED: IBUPROFEN 400 MG TABLET (FP) PO PRN (13:32)
[2020-01-25] MEDS ORDERED: MAG HYDROX/AL HYDROX/SIMETH 30 ML UNIT-DOSE CUP PO PRN (13:32)
[2020-01-25] MEDS ORDERED: NICOTINE POLACRILEX 2 MG GUM BUC PRN (13:32)
[2020-01-25] MEDS ORDERED: ACETAMINOPHEN 325 MG TABLET (FP) PO PRN (13:32)
[2020-01-25] MEDS ORDERED: MAGNESIUM CITRATE 300 ML BOTTLE PO PRN (13:32)
[2020-01-25] MEDS ORDERED: P-EPHED 60MG/TRIPROLIDI 2.5MG TABLET PO PRN (13:32)
[2020-01-25] MEDS ORDERED: MENTHOL/PHENOL 1 EACH UD MM PRN (13:32)
[2020-01-25] MEDS ORDERED: MAGNESIUM HYDROX 2400MG/30ML ORAL SUSPENSION 30 ML CUP PO PRN (13:32)
[2020-01-25] MEDS ORDERED: guaiFENesin 200 MG/10 ML 10 ML UNIT-DOSE CUPS PO PRN (13:32)
[2020-01-25] MEDS ORDERED: LOPERAMIDE HCL 2 MG CAPSULE PO PRN (13:32)
[2020-01-25] MEDS ORDERED: cloNIDine HCL 0.1 MG TABLET PO PRN ×2 (13:35→13:36)
[2020-01-25] MEDS ORDERED: METHOCARBAMOL 500 MG TABLET PO PRN (13:39)
[2020-01-25] MEDS: hydrOXYzine PAMOATE 25 MG CAPSULE (FP) PO PRN ×2 (17:59→21:30)
[2020-01-25] MEDS: THIAMINE HCL 100 MG TABLET (FP) PO SCH (21:29)
[2020-01-25] MEDS: MELATONIN 5 MG TABLETS PO SCH (21:29)
[2020-01-26] MEDS: NICOTINE 21 MG/24 HOURS TOPICAL PATCH TD SCH (10:50)
[2020-01-26] MEDS: PRENATAL VITAMINS W/ FOLIC ACID TABLET (FP) PO SCH (10:50)
[2020-01-26] MEDS: hydrOXYzine PAMOATE 25 MG CAPSULE (FP) PO PRN ×2 (19:41→21:29)
[2020-01-26] MEDS: THIAMINE HCL 100 MG TABLET (FP) PO SCH (21:29)
[2020-01-26] MEDS: MELATONIN 5 MG TABLETS PO SCH (21:29)
[2020-01-27 07:00] VITALS: BP 110/69; PULSE 71; TEMP 97.5
[2020-01-27] MEDS: NICOTINE 21 MG/24 HOURS TOPICAL PATCH TD SCH (10:22)
[2020-01-27] MEDS: PRENATAL VITAMINS W/ FOLIC ACID TABLET (FP) PO SCH (10:22)
== END 2020-01-27 13:00 | disposition home or self-care (01) | DRG 772 ==
LOC: YASAS 11:49 → Y3W 11:50
PROVIDERS: ADMIT Allergy & Immunology; ATTEND Allergy & Immunology
PROC: HZ42ZZZ Group Counseling for Substance Abuse Treatment, Cognitive-Behavioral (ICD-10-PCS; principal; 2020-01-25)
DX: F11.20 Opioid dependence, uncomplicated (principal); F10.20 Alcohol dependence, uncomplicated; F14.20 Cocaine dependence, uncomplicated; F17.210 Nicotine dependence, cigarettes, uncomplicated; Z86.19 Personal history of other infectious and parasitic diseases; Z86.14 Personal history of Methicillin resistant Staphylococcus aureus infection; Z91.013 Allergy to seafood; Z56.0 Unemployment, unspecified; Z59.0 Homelessness

== ENCOUNTER 2020-02-29 13:09 | Inpatient (IN) | payer OTHER ==
[2020-02-29] MEDS ORDERED: MAGNESIUM HYDROX 2400MG/30ML ORAL SUSPENSION 30 ML CUP PO PRN (14:47)
[2020-02-29] MEDS ORDERED: MENTHOL/PHENOL 1 EACH UD MM PRN (14:47)
[2020-02-29] MEDS ORDERED: guaiFENesin 200 MG/10 ML 10 ML UNIT-DOSE CUPS PO PRN (14:47)
[2020-02-29] MEDS ORDERED: P-EPHED 60MG/TRIPROLIDI 2.5MG TABLET PO PRN (14:47)
[2020-02-29] MEDS ORDERED: ACETAMINOPHEN 325 MG TABLET (FP) PO PRN (14:47)
[2020-02-29] MEDS ORDERED: LOPERAMIDE HCL 2 MG CAPSULE PO PRN (14:47)
[2020-02-29] MEDS ORDERED: MAGNESIUM CITRATE 300 ML BOTTLE PO PRN (14:47)
[2020-02-29] MEDS ORDERED: NICOTINE POLACRILEX 2 MG GUM BUC PRN (14:47)
[2020-02-29] MEDS: THIAMINE HCL 100 MG TABLET (FP) PO SCH (21:48)
[2020-02-29] MEDS: MELATONIN 5 MG TABLETS PO SCH (21:48)
[2020-02-29] MEDS: hydrOXYzine PAMOATE 25 MG CAPSULE (FP) PO PRN (21:48)
[2020-02-29] MEDS: SULFAMETHOXAZOLE/TRIMETHOPRIM 800MG/160MG D.S. TABLET PO SCH (21:48)
[2020-03-01] MEDS: PRENATAL VITAMINS W/ FOLIC ACID TABLET (FP) PO SCH (09:21)
[2020-03-01] MEDS: NICOTINE 7 MG/24 HOURS TOPICAL PATCH TD SCH (09:21)
[2020-03-01] MEDS: SULFAMETHOXAZOLE/TRIMETHOPRIM 800MG/160MG D.S. TABLET PO SCH ×2 (09:22→21:05)
[2020-03-01] MEDS: hydrOXYzine PAMOATE 25 MG CAPSULE (FP) PO PRN ×2 (17:32→21:05)
[2020-03-01] MEDS: MELATONIN 5 MG TABLETS PO SCH (21:05)
[2020-03-01] MEDS: METHOCARBAMOL 500 MG TABLET PO PRN (21:05)
[2020-03-01] MEDS: THIAMINE HCL 100 MG TABLET (FP) PO SCH (21:06)
[2020-03-02] MEDS: SULFAMETHOXAZOLE/TRIMETHOPRIM 800MG/160MG D.S. TABLET PO SCH ×2 (09:31→21:59)
[2020-03-02] MEDS: NICOTINE 7 MG/24 HOURS TOPICAL PATCH TD SCH (09:31)
[2020-03-02] MEDS: PRENATAL VITAMINS W/ FOLIC ACID TABLET (FP) PO SCH (09:31)
[2020-03-02] MEDS: hydrOXYzine PAMOATE 25 MG CAPSULE (FP) PO PRN (18:17)
[2020-03-02] MEDS: THIAMINE HCL 100 MG TABLET (FP) PO SCH (21:59)
[2020-03-02] MEDS: MELATONIN 5 MG TABLETS PO SCH (21:59)
[2020-03-02] MEDS: METHOCARBAMOL 500 MG TABLET PO PRN (21:59)
[2020-03-03] MEDS: PRENATAL VITAMINS W/ FOLIC ACID TABLET (FP) PO SCH (09:28)
[2020-03-03] MEDS: NICOTINE 7 MG/24 HOURS TOPICAL PATCH TD SCH (09:29)
[2020-03-03] MEDS: SULFAMETHOXAZOLE/TRIMETHOPRIM 800MG/160MG D.S. TABLET PO SCH ×2 (09:29→21:00)
[2020-03-03] MEDS: IBUPROFEN 400 MG TABLET (FP) PO PRN (17:47)
[2020-03-03] MEDS: METHOCARBAMOL 500 MG TABLET PO PRN (17:47)
[2020-03-03] MEDS: hydrOXYzine PAMOATE 25 MG CAPSULE (FP) PO PRN (21:00)
[2020-03-03] MEDS: THIAMINE HCL 100 MG TABLET (FP) PO SCH (21:00)
[2020-03-03] MEDS: MELATONIN 5 MG TABLETS PO SCH (21:01)
[2020-03-04] MEDS: hydrOXYzine PAMOATE 25 MG CAPSULE (FP) PO PRN (02:48)
[2020-03-04] MEDS: IBUPROFEN 400 MG TABLET (FP) PO PRN (02:48)
[2020-03-04] MEDS: METHOCARBAMOL 500 MG TABLET PO PRN (03:58)
[2020-03-04] MEDS: PRENATAL VITAMINS W/ FOLIC ACID TABLET (FP) PO SCH (09:27)
[2020-03-04] MEDS: SULFAMETHOXAZOLE/TRIMETHOPRIM 800MG/160MG D.S. TABLET PO SCH ×2 (09:28→21:01)
[2020-03-04] MEDS: NICOTINE 7 MG/24 HOURS TOPICAL PATCH TD SCH (09:28)
[2020-03-04] MEDS: MAG HYDROX/AL HYDROX/SIMETH 30 ML UNIT-DOSE CUP PO PRN (16:54)
[2020-03-04] MEDS: THIAMINE HCL 100 MG TABLET (FP) PO SCH (21:01)
[2020-03-04] MEDS: MELATONIN 5 MG TABLETS PO SCH (21:01)
[2020-03-05] MEDS: METHOCARBAMOL 500 MG TABLET PO PRN ×2 (04:05→21:43)
[2020-03-05] MEDS: hydrOXYzine PAMOATE 25 MG CAPSULE (FP) PO PRN ×2 (04:05→21:43)
[2020-03-05] MEDS: PRENATAL VITAMINS W/ FOLIC ACID TABLET (FP) PO SCH (09:23)
[2020-03-05] MEDS: NICOTINE 7 MG/24 HOURS TOPICAL PATCH TD SCH (09:24)
[2020-03-05] MEDS: SULFAMETHOXAZOLE/TRIMETHOPRIM 800MG/160MG D.S. TABLET PO SCH ×2 (09:24→21:43)
[2020-03-05] MEDS: MAG HYDROX/AL HYDROX/SIMETH 30 ML UNIT-DOSE CUP PO PRN (19:35)
[2020-03-05] MEDS: MELATONIN 5 MG TABLETS PO SCH (21:43)
[2020-03-05] MEDS: THIAMINE HCL 100 MG TABLET (FP) PO SCH (21:43)
[2020-03-06 05:59] VITALS: BP 110/72; PULSE 73; TEMP 98
[2020-03-06] MEDS: hydrOXYzine PAMOATE 25 MG CAPSULE (FP) PO PRN (09:21)
[2020-03-06] MEDS: PRENATAL VITAMINS W/ FOLIC ACID TABLET (FP) PO SCH (09:21)
[2020-03-06] MEDS: SULFAMETHOXAZOLE/TRIMETHOPRIM 800MG/160MG D.S. TABLET PO SCH (09:21)
[2020-03-06] MEDS: NICOTINE 7 MG/24 HOURS TOPICAL PATCH TD SCH (09:21)
[2020-03-06] MEDS ORDERED: BACITRACIN 15 GM TUBE TOPICAL OINTMENT TP SCH (10:00)
== END 2020-03-06 09:55 | disposition home or self-care (01) | DRG 772 ==
LOC: YASAS 13:09 → Y5N 13:10
PROVIDERS: ADMIT Allergy & Immunology; ATTEND Allergy & Immunology
PROC: HZ42ZZZ Group Counseling for Substance Abuse Treatment, Cognitive-Behavioral (ICD-10-PCS; principal; 2020-02-29)
DX: F11.20 Opioid dependence, uncomplicated (principal); F10.20 Alcohol dependence, uncomplicated; F14.20 Cocaine dependence, uncomplicated; F12.20 Cannabis dependence, uncomplicated; F17.210 Nicotine dependence, cigarettes, uncomplicated; F32.9 Major depressive disorder, single episode, unspecified; L03.115 Cellulitis of right lower limb; B18.2 Chronic viral hepatitis C; Z87.438 Personal history of other diseases of male genital organs; Z87.81 Personal history of (healed) traumatic fracture; Z91.013 Allergy to seafood
CPT/HCPCS: C9803; U0003

== ENCOUNTER 2021-12-24 14:29 | Inpatient (IN) | payer BC, OTHER ==
[2021-12-24 15:35] VITALS: BMI 28.0
[2021-12-24] MEDS ORDERED: MAGNESIUM CITRATE 300 ML BOTTLE PO PRN (16:46)
[2021-12-24] MEDS ORDERED: MAG HYDROX/AL HYDROX/SIMETH 30 ML UNIT-DOSE CUP PO PRN (16:46)
[2021-12-24] MEDS ORDERED: BENZOCAINE/MENTHOL (CHLORASEPTIC ) LOZENGE MM PRN (16:46)
[2021-12-24] MEDS ORDERED: DICYCLOMINE HCL 10 MG CAPSULE PO PRN (16:46)
[2021-12-24] MEDS ORDERED: NALOXONE HCL (KLOXXADO) 8 MG SPRAY NS PRN (16:46)
[2021-12-24] MEDS ORDERED: BISMUTH SUBSALICYLATE 524 MG/30 ML PO PRN (16:46)
[2021-12-24] MEDS ORDERED: MAGNESIUM HYDROX 2400MG/30ML ORAL SUSPENSION 30 ML CUP PO PRN (16:46)
[2021-12-24] MEDS ORDERED: NICOTINE 10 MG CARTRIDGE (INHALER) IH PRN (16:46)
[2021-12-24] MEDS ORDERED: ACETAMINOPHEN 325 MG TABLET (FP) PO PRN ×2 (16:46)
[2021-12-24] MEDS ORDERED: hydrOXYzine PAMOATE 25 MG CAPSULE (FP) PO PRN (16:46)
[2021-12-24] MEDS ORDERED: ONDANSETRON *ODT* 4 MG TABLET SL PRN (16:46)
[2021-12-24] MEDS ORDERED: IBUPROFEN 600 MG TABLET (FP) PO PRN (16:46)
[2021-12-24] MEDS ORDERED: IBUPROFEN 400 MG TABLET (FP) PO PRN (16:46)
[2021-12-24] MEDS ORDERED: LOPERAMIDE HCL 2 MG CAPSULE PO PRN (16:46)
[2021-12-24] MEDS ORDERED: NICOTINE 14 MG/24 HOURS TOPICAL PATCH TD SCH (17:00)
[2021-12-24] MEDS: NICOTINE 21 MG/24 HOURS TOPICAL PATCH TD SCH (18:48)
[2021-12-24] MEDS: PRENATAL VITAMINS W/ FOLIC ACID TABLET (FP) PO SCH (18:48)
[2021-12-24] MEDS: CEPHALEXIN MONOHYDRATE 250 MG CAPSULE (FP) PO SCH (22:50)
[2021-12-24] MEDS: MELATONIN 5 MG TABLETS PO SCH (22:50)
[2021-12-24] MEDS: THIAMINE HCL 100 MG TABLET (FP) PO SCH (22:51)
[2021-12-25] MEDS: CEPHALEXIN MONOHYDRATE 250 MG CAPSULE (FP) PO SCH ×5 (00:10→23:01)
[2021-12-25] MEDS ORDERED: cloNIDine HCL 0.1 MG TABLET PO PRN (09:19)
[2021-12-25] MEDS ORDERED: methaDONE HCL 10 MG TABLET (FOR DETOX USE ONLY) PO ONE (10:00)
[2021-12-25] MEDS: METHOCARBAMOL 500 MG TABLET PO PRN (10:48)
[2021-12-25] MEDS: PRENATAL VITAMINS W/ FOLIC ACID TABLET (FP) PO SCH (10:51)
[2021-12-25] MEDS: NICOTINE 21 MG/24 HOURS TOPICAL PATCH TD SCH (10:51)
[2021-12-25] MEDS ORDERED: P-EPHED 60MG/TRIPROLIDI 2.5MG TABLET PO PRN (12:16)
[2021-12-25 15:33] LABS: HEMATOCRIT 39.5 % (35.4-49); HEMOGLOBIN 13.4 GM/dL (11.7-16.9); MCH 31.6 pg (25.7-33.7); MCHC 33.8 g/dl (32.0-35.9); MEAN CELL VOLUME 93.4 fl (80-96); MEAN PLT VOLUME 7.4 fl (7.5-11.1); PLATELET COUNT 219 10^3/uL (134-434); RBC 4.23 M/mm3 (4.00-5.60); RDW 13.7 % (11.9-15.9); WHITE BLOOD COUNT 5.6 K/mm3 (4.0-10.0)
[2021-12-25 16:11] LABS: BLOOD UREA NITROGEN 10.6 mg/dL (7-18); CALCIUM 8.8 mg/dL (8.5-10.1)
[2021-12-25 16:14] LABS: CREATININE 0.6 mg/dL (0.55-1.3)
[2021-12-25 16:15] LABS: BILIRUBIN,TOTAL 0.5 mg/dL (0.2-1); TOT PROT 6.3 g/dl (6.4-8.2)
[2021-12-25] MEDS: MELATONIN 5 MG TABLETS PO SCH (23:01)
[2021-12-25] MEDS: THIAMINE HCL 100 MG TABLET (FP) PO SCH (23:01)
[2021-12-26] MEDS: CEPHALEXIN MONOHYDRATE 250 MG CAPSULE (FP) PO SCH ×4 (06:12→23:24)
[2021-12-26] MEDS: PRENATAL VITAMINS W/ FOLIC ACID TABLET (FP) PO SCH (10:53)
[2021-12-26] MEDS: NICOTINE 21 MG/24 HOURS TOPICAL PATCH TD SCH (10:54)
[2021-12-26] MEDS: THIAMINE HCL 100 MG TABLET (FP) PO SCH (22:36)
[2021-12-26] MEDS: MELATONIN 5 MG TABLETS PO SCH (22:36)
[2021-12-26] MEDS: METHOCARBAMOL 500 MG TABLET PO PRN (22:36)
[2021-12-27] MEDS: CEPHALEXIN MONOHYDRATE 250 MG CAPSULE (FP) PO SCH (06:53)
[2021-12-27] MEDS ORDERED: TRIMETHOBENZAMIDE HCL 200MG/2ML INJ IM ONE (08:45)
[2021-12-27 09:10] VITALS: BP 118/74; PULSE 61; RESP 16; TEMP 98.2
[2021-12-27] MEDS ORDERED: methaDONE HCL 10 MG TABLET (FOR DETOX USE ONLY) PO ONE (10:00)
[2021-12-29] MEDS ORDERED: methaDONE HCL 10 MG TABLET (FOR DETOX USE ONLY) PO ONE (10:00)
== END 2021-12-27 10:34 | disposition left against medical advice (07) | DRG 770 ==
LOC: YASAS 14:29 → Y3N 17:38
PROVIDERS: ADMIT Allergy & Immunology; ATTEND Surgery
PROC: HZ2ZZZZ Detoxification Services for Substance Abuse Treatment (ICD-10-PCS; principal; 2021-12-24)
DX: F11.23 Opioid dependence with withdrawal (principal); F10.230 Alcohol dependence with withdrawal, uncomplicated; F14.20 Cocaine dependence, uncomplicated; F12.20 Cannabis dependence, uncomplicated; F17.210 Nicotine dependence, cigarettes, uncomplicated; F32.A Depression, unspecified; B18.2 Chronic viral hepatitis C; L98.8 Other specified disorders of the skin and subcutaneous tissue
CPT/HCPCS: 36415; 80053; 85027; 86780; 93005; 93010; C9803-CS; U0003; U0005